=== PATIENT | female | born 1990 | race Two or more races ===

== ENCOUNTER 2017-10-04 09:20 | Emergency (ER) | payer MEDICAID ==
[~2017-10-04] VITALS: Ht 160 cm; Wt 69.9 kg
[2017-10-04 10:13] VITALS: BP 122/72
== END 2017-10-04 10:37 | disposition home or self-care (01) ==
LOC: ER 09:20
DX: S83.8X2A Sprain of other specified parts of left knee, initial encounter (principal); X58.XXXA Exposure to other specified factors, initial encounter; Y93.01 Activity, walking, marching and hiking; Y92.89 Other specified places as the place of occurrence of the external cause; Y99.8 Other external cause status